=== PATIENT | male | born 1975 | race Caucasian/White ===

== ENCOUNTER 2019-05-27 11:17 | Emergency (ER) | payer OTHER ==
[~2019-05-27] VITALS: Ht 182.9 cm; Wt 81.7 kg
--- NOTE | 2019-05-27 14:36 | NUR ---
Ambulatory in Day SurgeryLungs clear T/O to Auscultation. Patient confirms NPO status and agrees with scheduled surgery. History, Chart, Medications and Allergies reviewed before start of procedure.Pre-Op teaching done. Pt verbalizes understanding. Patient States Post-Procedure ride home has been arranged.
--- NOTE | 2019-05-27 20:04 | NUR ---
2000-PT DC'D TO HOME ACC BY HIS GIRLFRIEND. VERBALIZES A GOOD UNDERSTANDING OF HIS HOME CARE.
--- NOTE | 2019-05-28 09:33 | NUR ---
05/28/19 0933 Lauren Schafer VERIFICATIONS: EDIT CHART.
== END 2019-05-27 13:30 | disposition home or self-care (01) ==
LOC: ER 11:17
DX: S40.251A Superficial foreign body of right shoulder, initial encounter (principal); W22.8XXA Striking against or struck by other objects, initial encounter; Y99.0 Civilian activity done for income or pay
CPT/HCPCS: 73200; 90471; 90714; 96365; 96375; 99284-25; A9270-GY; J0690; J1170; J2405; J3010; J7030; J7120